=== PATIENT | female | born 2000 | race Native Hawaiian/Other Pacific Islander ===

== ENCOUNTER 2022-06-26 19:50 | Emergency (ER) | payer OTHER ==
[~2022-06-26] VITALS: Ht 154.9 cm; Wt 72.6 kg
[2022-06-26 20:50] LABS: PLATELET COUNT 224 K/uL (152-353)
[2022-06-26 20:53] LABS: POTASSIUM 3.4 mmol/L (3.6-5.2); SODIUM 141 mmol/L (136-145)
[2022-06-26 21:10] LABS: PARTIAL THROMBOPLASTIN TIME 24.1 SECONDS (24.5-33.6)
[2022-06-26 21:55] VITALS: BP 120/76; TEMP 98.3
== END 2022-06-26 21:55 | disposition home or self-care (01) ==
LOC: ED 19:50
PROVIDERS: Family Medicine
DX: R07.89 Other chest pain (principal); E87.6 Hypokalemia; F41.8 Other specified anxiety disorders
CPT/HCPCS: 36415; 80053; 80307; 81000; 81025; 82550; 84484; 85027; 85379; 85610; 85730; 93005; 99283; Q0177